=== PATIENT | female | born 1950 ===

== ENCOUNTER 2018-09-22 11:57 | Outpatient (CLI) | payer MEDICARE ==
--- NOTE | 2018-09-22 13:43 | MMO ---
Bilateral MAMMO Bilat Screen [facility]. CLINICAL HISTORY: Patient is 67 years old and is seen for screening. The patient has the following family history of breast cancer: maternal aunt, at age 66. The patient has no personal history of cancer. VIEWS: The views performed were: bilateral craniocaudal with tomosynthesis; bilateral mediolateral oblique with tomosynthesis; and right mediolateral oblique. FILMS COMPARED: The present examination has been compared to prior imaging studies performed at [facility] on 12/24/2010, 12/09/2011, 12/09/2012, 12/12/2013, 12/14/2014, 12/18/2015 and 03/16/2017, and at [facility] on 11/15/2003, 03/18/2007 and 12/18/2009. MAMMOGRAM FINDINGS: There are scattered fibroglandular densities. Benign calcifications are noted bilaterally. There are no suspicious masses, suspicious calcifications, or new areas of architectural distortion. IMPRESSION: THERE IS NO MAMMOGRAPHIC EVIDENCE OF MALIGNANCY. A ROUTINE FOLLOW-UP MAMMOGRAM IN 1 YEAR IS RECOMMENDED. THE RESULTS OF THIS EXAM WERE SENT TO THE PATIENT. ACR BI-RADS Category 2 - Benign finding MAMMOGRAPHY NOTE: 1. A negative mammogram report should not delay a biopsy if a dominant of clinically suspicious mass is present. 2. Approximately 10% to 15% of breast cancers are not detected by mammography. 3. Adenosis and dense breasts may obscure an underlying neoplasm.
== END 2018-09-22 11:58 | disposition home or self-care (01) ==
LOC: BICMAMMO 11:57
PROVIDERS: ATTEND Obstetrics & Gynecology
DX: Z12.31 Encounter for screening mammogram for malignant neoplasm of breast (principal); Z80.3 Family history of malignant neoplasm of breast
CPT/HCPCS: 77063; 77067